=== PATIENT | male | born 1980 | race African-American/Black ===

== ENCOUNTER 2016-08-02 10:38 | Emergency (ER) | payer OTHER ==
[~2016-08-02] VITALS: Ht 193 cm; Wt 147.4 kg
[2016-08-02] MEDS ORDERED: AZIT250T PO (12:39)
[2016-08-02] MEDS ORDERED: PRED50TA PO (12:39)
[2016-08-02] MEDS ORDERED: PROAIR HFA8.5 GM INH (12:39)
[2016-08-02] MEDS ORDERED: D-ME118S2 PO (12:39)
--- NOTE | 2016-08-02 12:39 | PHYS DOC ---
Past Medical History Past Medical History: Asthma, Other Additional Past Medical Histor: GASTRIC ULCERS, HEART PALPITATIONS Past Surgical History: Tonsillectomy Alcohol Use: None Drug Use: Marijuana Adult General Chief Complaint Chief Complaint: SORE THROAT HPI HPI Patient is a 36 year old male presents emergency room today with a complaint of ongoing cough, congestion and sore throat for the past 2-3 weeks. Patient reports that he does have a history of asthma. Patient denies any known ill contacts. He denies any foreign travel, antibiotic use or hospitalization within the past 30 days. Patient does not smoke cigarettes. He does admit to smoking marijuana "occasionally". Patient uses Symbicort at home daily. He is not using a rescue inhaler such as albuterol. Review of Systems Review of Systems Constitutional: Denies fever or chills [] Eyes: Denies change in visual acuity, redness, or eye pain [] HENT: Denies nasal congestion or sore throat [] Respiratory: Denies cough or shortness of breath [] Cardiovascular: No additional information not addressed in HPI [] GI: Denies abdominal pain, nausea, vomiting, bloody stools or diarrhea [] : Denies dysuria or hematuria [] Musculoskeletal: Denies back pain or joint pain [] Integument: Denies rash or skin lesions [] Neurologic: Denies headache, focal weakness or sensory changes [] Endocrine: Denies polyuria or polydipsia [] Allergies Allergies Allergies Coded Allergies Type Severity Reaction Last Updated Verified Fish Containing Products Allergy Severe anaphylaxis reaction 12/31/14 Yes Physical Exam Physical Exam Constitutional: Well developed, well nourished, no acute distress, non-toxic appearance. [] HENT: Normocephalic, atraumatic, bilateral external ears normal, oropharynx moist, no oral exudates, nose normal. There is no hot potato speech or trismus. Posterior oropharynx with mild cobblestoning. There is no exudative plaques on the tonsils. There is no peritonsillar swelling or uvular deviation. Patient is ample room to manage his secretions and swallow food. Eyes: PERRLA, EOMI, conjunctiva normal, no discharge. [] Neck: Normal range of motion, no tenderness, supple, no stridor. [] Cardiovascular:Heart rate regular rhythm, no murmur [] Lungs & Thorax: There is no respiratory distress or fatigue. Patient's central coarse wheezing the resonates bilaterally into the peripheral lung castro. The peripheral lung castro themselves are clear. Patient demonstrates full chest excursion with deep inspiration. Patient is able speak in full sentences. Abdomen: Bowel sounds normal, soft, no tenderness, no masses, no pulsatile masses. [] Skin: Warm, dry, no erythema, no rash. [] Back: No tenderness, no CVA tenderness. [] Extremities: No tenderness, no cyanosis, no clubbing, ROM intact, no edema. [] Neurologic: Alert and oriented X 3, normal motor function, normal sensory function, no focal deficits noted. [] Psychologic: Affect normal, judgement normal, mood normal. [] Current Patient Data Vital Signs Vital Signs Date Time Temp Pulse Resp B/P Pulse Ox O2 Delivery O2 Flow Rate FiO2 08/02/16 12:56 100 16 173/99 97 Room Air 08/02/16 11:30 98.1 98.1 EKG EKG [] Radiology/Procedures Radiology/Procedures [] Course & Med Decision Making Course & Med Decision Making Pertinent Labs and Imaging studies reviewed. (See chart for details) [] Dragon Disclaimer Dragon Disclaimer This electronic medical record was generated, in whole or in part, using a voice recognition dictation system. Departure Departure Impression: Primary Impression: Bronchitis Disposition: 01 HOME, SELF-CARE Condition: GOOD Referrals: NO PCP (PCP) Patient Instructions: Acute Bronchitis, [id number] Additional Instructions: 1. Take the medications as prescribed. 2. Review the discharge instructions provided for reasons to return to the emergency department. 3. A pamphlet has been provided to you for assistance in finding a primary care doctor to address your medical concerns. Please call tomorrow to schedule follow -up appointment. Scripts D-Methorphan Hb/Prometh Hcl (Promethazine-Dm Syrup)118 Ml Syrup5 Ml PO PRN Q6HRS COUGH #120 ML Prov:RASHARD CALDERON 08/02/16 Azithromycin (Zithromax)250 Mg Tablet1 Pkg PO UD #6 TAB Prov:RASHARD CALDERON 08/02/16 Albuterol Sulfate (Proair Hfa Inhaler)8.5 Gm Hfa.aer.ad2 Puff INH PRN Q6HRS PRN SHORTNESS OF BREATH #1 INHALER Ref 0 Prov:RASHARD CALDERON 08/02/16 Prednisone 50 Mg [id number] Mg PO DAILY 5 Days Prov:RASHARD CALDERON 08/02/16 RASHARD CALDERON Aug 02, 2016 12:39
[2016-08-02 12:56] VITALS: BP 173/99
== END 2016-08-02 12:55 | disposition home or self-care (01) ==
LOC: ER 10:38
DX: J40 Bronchitis, not specified as acute or chronic (principal); J45.909 Unspecified asthma, uncomplicated; F12.10 Cannabis abuse, uncomplicated; Z90.89 Acquired absence of other organs; Z91.013 Allergy to seafood
CPT/HCPCS: 99283

== ENCOUNTER 2018-01-30 22:00 | Emergency (ER) | payer SELFPAY, OTHER ==
[2018-01-30] MEDS: DIPHTH,PERTUSS(ACELL),TET TOX 0.5 ML DISP.SYRIN. VAX IM (22:50)
== END 2018-01-30 22:56 | disposition home or self-care (01) ==
LOC: ER 22:56
DX: L98.8 Other specified disorders of the skin and subcutaneous tissue (principal); J45.909 Unspecified asthma, uncomplicated; Z91.013 Allergy to seafood
CPT/HCPCS: 90471; 90715; 99283

== ENCOUNTER 2018-11-29 10:10 | Emergency (ER) | payer OTHER, SELFPAY ==
[~2018-11-29] VITALS: Ht 193 cm; Wt 192.8 kg
[~2018-11-29 10:10] MED LIST: ALBU2.5V8 INH; AZIT250T PO; D-ME118S2 PO; PRED50TA PO
[2018-11-29 10:56] VITALS: BP 175/100
[2018-11-29] MEDS ORDERED: IBUPROFEN 400 MG TABLET. PO ONE (11:15)
[2018-11-29 11:19] LABS: BILIRUBIN,URINE NEGATIVE (NEG); CLARITY,URINE CLEAR; COLOR,URINE YELLOW; NITRITE,URINE NEGATIVE (NEG); PROTEIN,URINE NEGATIVE (NEG-TRACE); UROBILINOGEN,URINE 0.2 mg/dL (0.2 mg/dL)
[2018-11-29 11:27] LABS: BACTERIA,URINE 0 /HPF (0-FEW); RBC,URINE 0 /HPF (0-2); WBC,URINE OCC /HPF (0-4)
--- NOTE | 2018-11-29 12:58 | RAD ---
Scrotal ultrasound, 11/29/2018: History: Left suggest testicular pain and scrotal swelling The right testicle measures 2.9 x 2.5 x 1.7 cm while the left testicle measures 3.5 x 2.2 x 1.9 cm. There is a tiny 2 mm cyst in the left testicle. No solid testicular mass is seen. There are numerous echogenic foci in both testicles compatible with testicular microlithiasis. No epididymal abnormality is seen. There is no evidence of a hydrocele. There is a mildly heterogeneous mass of medium echogenicity involving the lower scrotum. It is not discretely marginated and is difficult to measure. It is estimated to measure at least 6 cm. It is displacing the testicle superiorly. Its echogenicity is similar to that of the subcutaneous fat. This may represent a lipoma versus herniated abdominal fat. IMPRESSION: 1. Testicular microlithiasis. 2. Tiny left testicular cyst. 3. Medium echogenicity mass in the lower scrotum as described above. CT scanning is suggested for further evaluation, if clinically indicated.
[2018-11-29] MEDS ORDERED: HYDR-3164 PO (13:53)
--- NOTE | 2018-11-29 13:53 | PHYS DOC ---
Past Medical History Past Medical History: Asthma Additional Past Medical Histor: GASTRIC ULCERS, HEART PALPITATIONS Past Surgical History: No Surgical History Alcohol Use: Occasionally Drug Use: None Adult General Chief Complaint Chief Complaint: GROIN PAIN HPI HPI Patient is a 38 year old male who presents with the above left groin pain and mass. Patient states he has had a mass in left scrotal without related to his testicle for more than 1 months that rigidity getting larger and more painful. Patient states he was seen by his primary care physician and referred to her urologist with appointment for 24 of this month. Increase of symptoms for the last few days and instructed to come in to come to ER. Patient denies urinary symptoms, fever and chills, abdominal pain, penile discharge, history of injury. Review of Systems Review of Systems Constitutional: Denies fever or chills [] Eyes: Denies change in visual acuity, redness, or eye pain [] HENT: Denies nasal congestion or sore throat [] Respiratory: Denies cough or shortness of breath [] Cardiovascular: No additional information not addressed in HPI [] GI: Denies abdominal pain, nausea, vomiting, bloody stools or diarrhea [] : Denies dysuria or hematuria [] Musculoskeletal: Denies back pain or joint pain [] Integument: Denies rash or skin lesions [] Neurologic: Denies headache, focal weakness or sensory changes [] Endocrine: Denies polyuria or polydipsia [] All other systems were reviewed and found to be within normal limits, except as documented in this note. Current Medications Current Medications Current Medications Medications (Trade) Dose Ordered Sig/John Start Time Stop Time Status Last Admin Dose Admin Ibuprofen (Motrin) 800 mg 1X ONCE 11/29/18 11:15 11/29/18 11:16 DC 11/29/18 11:11 800 MG Allergies Allergies Allergies Coded Allergies Type Severity Reaction Last Updated Verified Fish Containing Products Allergy Severe anaphylaxis reaction 12/31/14 Yes Physical Exam Physical Exam Constitutional: Well developed, well nourished, mild distress, non-toxic appearance, morbidly obese. [] HENT: Normocephalic, atraumatic. Eyes: PERRLA, EOMI, conjunctiva normal, no discharge. [] Neck: Normal range of motion, no tenderness, supple, no stridor. [] Cardiovascular:Heart rate regular rhythm, no murmur [] Lungs & Thorax: Bilateral breath sounds clear to auscultation [] Abdomen: Bowel sounds normal, soft, no tenderness, no masses, no pulsatile masses. Genital exam with present of N showed a large soft mass in the left scrotum without relation to testicle or abdomen like a lipoma or a cyst with very mild tenderness.[] Skin: Warm, dry, no erythema, no rash. [] Back: No tenderness, no CVA tenderness. [] Extremities: No tenderness, no cyanosis, no clubbing, ROM intact, no edema. [] Neurologic: Alert and oriented X 3, normal motor function, normal sensory function, no focal deficits noted. [] Psychologic: Affect normal, judgement normal, mood normal. [] Current Patient Data Vital Signs Vital Signs Date Time Temp Pulse Resp B/P (MAP) Pulse Ox O2 Delivery O2 Flow Rate FiO2 11/29/18 10:56 98.1 100 16 175/100 (125) 99 Room Air 98.1 Lab Values Laboratory Tests Test 11/29/18 11:05 Urine Collection Type Unknown Urine Color Yellow Urine Clarity Clear Urine pH 6.0 Urine Specific [place] 1.020 Urine Protein Negative mg/dL (NEG-TRACE) Urine Glucose (UA) Negative mg/dL (NEG) Urine Ketones (Stick) Negative mg/dL (NEG) Urine Blood Negative (NEG) Urine Nitrite Negative (NEG) Urine Bilirubin Negative (NEG) Urine Urobilinogen Dipstick 0.2 mg/dL (0.2 mg/dL) Urine Leukocyte Esterase Negative (NEG) Urine RBC 0 /HPF (0-2) Urine WBC Occ /HPF (0-4) Urine Bacteria 0 /HPF (0-FEW) Urine Mucus Marked /LPF EKG EKG [] Radiology/Procedures Radiology/Procedures [facility] [address] [place] [address] IMAGING REPORT Signed PATIENT: DEBBIE LAMBERT ACCOUNT: [id number] : 1980 LOCATION: ER AGE: 38 SEX: M EXAM STATUS: REG ER ORD. PHYSICIAN: MAXX MEHTA MD REASON: left scrotum cyst PROCEDURE: TESTICULAR/SCROTUM Scrotal ultrasound, 11/29/2018: History: Left suggest testicular pain and scrotal swelling The right testicle measures 2.9 x 2.5 x 1.7 cm while the left testicle measures 3.5 x 2.2 x 1.9 cm. There is a tiny 2 mm cyst in the left testicle. No solid testicular mass is seen. There are numerous echogenic foci in both testicles compatible with testicular microlithiasis. No epididymal abnormality is seen. There is no evidence of a hydrocele. There is a mildly heterogeneous mass of medium echogenicity involving the lower scrotum. It is not discretely marginated and is difficult to measure. It is estimated to measure at least 6 cm. It is displacing the testicle superiorly. Its echogenicity is similar to that of the subcutaneous fat. This may represent a lipoma versus herniated abdominal fat. IMPRESSION: 1. Testicular microlithiasis. 2. Tiny left testicular cyst. 3. Medium echogenicity mass in the lower scrotum as described above. CT scanning is suggested for further evaluation, if clinically indicated. DICTATED and SIGNED BY: SAMANTHA FRITZ MD DATE: 11/29/18 1250 Course & Med Decision Making Course & Med Decision Making Pertinent Labs and Imaging studies reviewed. (See chart for details) Evaluation of patient in ER showed 38-year-old male patient with a soft mass to left scrotal for more than one month that getting more painful recently. Patient had more than 10 cm soft mass in the scrotum like his lipoma or cyst. Patient had ultrasound with recommendation of CT but patient didn't want to have CT of abdomen and pelvis. On-call urologist consulted at 1340 and recommended patient following up with his office tomorrow. Patient was informed about test results and plan of care. Discharge Dragon Disclaimer Dragon Disclaimer This electronic medical record was generated, in whole or in part, using a voice recognition dictation system. Departure Departure Impression: Primary Impression: Scrotal mass Additional Impression: Morbid obesity with BMI of 50.0-59.9, adult Disposition: 01 HOME, SELF-CARE Condition: STABLE Referrals: UNKNOWN PCP NAME (PCP) NAV DIAZ MD Patient Instructions: Scrotal Swelling Additional Instructions: Follow-up with office tomorrow, call [phone] to make an appoi ntment Return to ER if not getting better Scripts Hydrocodone/Apap 5-325 (NORCO 5-325 TABLET) 1 Each Tablet 1 TAB PO PRN Q6HRS PRN for PAIN, #10 TAB 0 Refills Prov: MAXX MEHTA MD 11/29/18 Problem Qualifiers MAXX MEHTA MD November 29, 2018 13:53
== END 2018-11-29 14:03 | disposition home or self-care (01) ==
LOC: ER 10:10
DX: N50.89 Other specified disorders of the male genital organs (principal); E66.01 Morbid (severe) obesity due to excess calories; Z68.43 Body mass index [BMI] 50.0-59.9, adult; J45.909 Unspecified asthma, uncomplicated; Z91.013 Allergy to seafood
CPT/HCPCS: 76870; 81001; 99285-25